=== PATIENT | female | born 1980 | race Caucasian/White ===

== ENCOUNTER → 2017-08-17 | Outpatient (CLI) | payer OTHER ==
[2016-02-25 17:25] VITALS: BP 112/56
--- NOTE | 2017-08-17 13:16 | RAD ---
Right wrist, 4 views, 08/17/2017: History: Wrist pain No fracture or dislocation is identified. No significant arthritic change is seen. The soft tissues are unremarkable. IMPRESSION: No significant right wrist abnormality is detected.
== END | disposition home or self-care (01) ==
LOC: RAD 12:44
PROVIDERS: ATTEND Orthopaedic Surgery Sports Medicine
DX: M25.531 Pain in right wrist (principal)
CPT/HCPCS: 73110

== ENCOUNTER → 2018-06-07 | Outpatient (CLI) | payer OTHER ==
[2016-02-25 17:25] VITALS: BP 112/56
--- NOTE | 2018-06-07 16:22 | RAD ---
EXAM: Neck sonogram. HISTORY: Lymphadenopathy. TECHNIQUE: Sonographic imaging of the neck was performed. COMPARISON: None. FINDINGS: There are right cervical chain lymph nodes at the site of palpable concern measuring 10 x 5 x 3 mm and 8 x 5 x 2 mm. These maintain benign fatty jerrod. No suspicious lymph node morphology is seen. No alternative mass or fluid collection is seen. IMPRESSION: Benign-appearing right cervical chain lymph nodes at the site of palpable concern, the largest of which measures 10 mm in long axis. Electronically signed by: Racheal Wu MD (06/07/2018 4:19 PM) [place] [id number]
== END | disposition home or self-care (01) ==
LOC: US 15:05
PROVIDERS: ATTEND Physician Assistant
DX: R59.0 Localized enlarged lymph nodes (principal); Z87.891 Personal history of nicotine dependence; Z88.2 Allergy status to sulfonamides; Z88.6 Allergy status to analgesic agent
CPT/HCPCS: 76536

== ENCOUNTER → 2019-04-02 | Outpatient (CLI) | payer OTHER ==
[2016-02-25 17:25] VITALS: BP 112/56
--- NOTE | 2019-04-02 10:40 | RAD ---
Three-view right shoulder study Clinical indications: Right shoulder pain. M 25.511. FINDINGS: No acute fracture or dislocation or lytic process is seen. No AC joint separation is seen. There is mild degenerative spurring of the right AC joint. There is mild lateral downsloping of the acromial process. These findings may impinge the acromial humeral space resulting in rotator cuff disease. IMPRESSION: No acute fracture. Electronically signed by: Chandana Russo MD (04/02/2019 10:37 AM) [facility]
== END | disposition home or self-care (01) ==
LOC: RAD 09:50
PROVIDERS: ATTEND Orthopaedic Surgery Sports Medicine
DX: M25.511 Pain in right shoulder (principal)
CPT/HCPCS: 73030

== ENCOUNTER 2019-11-07 17:24 | Emergency (ER) | payer OTHER ==
[~2019-11-07] VITALS: Ht 167.6 cm; Wt 77.2 kg
--- NOTE | 2019-11-07 17:29 | PHYS DOC ---
Past History Past Medical History: Other Past Surgical History: Other Smoking: Cigarettes Alcohol Use: Occasionally Drug Use: None Adult General Chief Complaint Chief Complaint: ".. I ve been hurting really bad for last two days.. my neck.. my upper back.. and it runs into my Lt shoulder and arm...."..." I been using icy hot and heat packs but has not seemed to help" HPI HPI Patient is a 39 year old female who presents with neck, chest, Lt shoulder and arm pain. Pt. follow with Tra for care.. Patient did help with some heavy lifting a couple is ago. Patient localizes her pain primarily in trapezius on left. There is no midline tenderness. No fevers. No problems with defecation or urination. Patient is right-hand dominant. Pain appears to follow neuropathic- burning sensation. She does have sensations in her deltoid. Punch Operator are equal. Distal sensation is equal to right hand. Patient has had some rheumatological issues and is a family history Lupus. She normally follows with Tra. Review of Systems Review of Systems Constitutional: Denies fever or chills [] Eyes: Denies change in visual acuity, redness, or eye pain [] HENT: Denies nasal congestion or sore throat . Patient []complaints of left trapezius pain Respiratory: Denies cough or shortness of breath [] Cardiovascular: No additional information not addressed in HPI [] GI: Denies abdominal pain, nausea, vomiting, bloody stools or diarrhea [] : Denies dysuria or hematuria [] Musculoskeletal: Denies back pain or joint pain []. Complains of left shoulder/trapezius pain Integument: Denies rash or skin lesions [] Neurologic: Denies headache, focal weakness or sensory changes [] Endocrine: Denies polyuria or polydipsia [] All other systems were reviewed and found to be within normal limits, except as documented in this note. Family History Family History Lupus, hypertension, cardiac disease starting 40s Current Medications Current Medications See nursing for home meds Allergies Allergies Allergies Coded Allergies Type Severity Reaction Last Updated Verified Sulfa (Sulfonamide Antibiotics) Allergy Unknown 02/25/16 Yes tramadol Allergy Unknown 02/25/16 Yes Physical Exam Physical Exam Constitutional: , moderately acute acute distress, non-toxic appearance. [] HENT: Normocephalic, atraumatic, bilateral external ears normal, oropharynx moist, no oral exudates, nose normal. []Trapezius area is tender Eyes: PERRLA, EOMI, conjunctiva normal, no discharge. [] Neck: Normal range of motion, no tenderness, supple, no stridor. [] Cardiovascular:Heart rate regular rhythm, no murmur [] Lungs & Thorax: Bilateral breath sounds equal apex with scattered wheezing auscultation [] Abdomen: Bowel sounds normal, soft, no tenderness, no masses, no pulsatile masses. [] Skin: Warm, dry, no erythema, no rash. [] Back: No tenderness, no CVA tenderness. [] Extremities: Left shoulder tenderness, no cyanosis, no clubbing, ROM intact, no edema. [] Neurologic: Alert and oriented X 3, normal motor function, normal sensory function, no focal deficits noted. []. DTRs +2 patella and brachial. Neuropathic pain from her neck into left shoulder and arm. DTRs +2 patella and brachial. No drift. Punch Operator equal. Psychologic: Affect anxious, judgement normal, mood normal. [] EKG EKG My interpretation EKG shows a sinus rhythm at 63 bpm. No acute morphology.[] Radiology/Procedures Radiology/Procedures [][place] [id number] IMAGING REPORT Signed PATIENT: MANJIT MORE ACCOUNT: [id number] : 1980 LOCATION: ER AGE: 39 SEX: F EXAM STATUS: REG ER ORD. PHYSICIAN: GALA VILLATORO MD REASON: Severe neck pain, neuropathy Lt. neck and arm PROCEDURE: CT CERVICAL SPINE WO CONTRAST Exam: CT CERVICAL SPINE WO CONTRAST Date: 11/07/2019 5:46 PM Indication: Severe neck pain with left-sided radiculopathy Comparison: None. Technique: CT imaging of the cervical spine was performed without contrast. Coronal and sagittal reformatted images were performed. One or more of the following dose reduction techniques were utilized: Automated exposure control (AEC), Adjustment of mA and/or kV according to patient size, Use of iterative reconstruction technique such as ASiR, CT scan done according to ALARA and image gently/image wisely. Findings: The cervical spine is normally aligned. No acute fracture. No aggressive lytic or blastic osseous lesion. Mild multilevel degenerative disc height loss. No high-grade spinal canal stenosis or neural foraminal narrowing. Atrophic or surgically absent left thyroid. No cervical lymphadenopathy. The visualized aerodigestive tract is unremarkable. The visualized portions of the lungs are clear. Impression: No acute osseous abnormality of the cervical spine. Mild cervical spondylosis. Electronically signed by: Octavio Braden MD (11/07/2019 6:35 PM) [id number] DICTATED AND SIGNED BY: OCTAVIO BRADEN MD DATE: 11/07/191834 CC: GALA VILLATORO MD; LAURYN ESPINOSA ~ My interpretation of chest and left shoulder films show no acute fracture or dislocation. Some mild degenerative changes Course & Med Decision Making Course & Med Decision Making Pertinent Labs and Imaging studies reviewed. (See chart for details) Patient to use ice packs only for the next 3 days. Gentle massage. Follow-up primary care. If no reentry follow with moist heat packs and massage. Patient take Flexeril 10 mg at 3 times a day for marked thoracic muscle spasms. Take Tylenol and ibuprofen for pain. For marked pain may take Vicoprofen up 4 times a day. Consider physical therapy. Review ED workup with primary care. Return if any concerns. Currently patient not smoke or use alcohol to excess. Continue problems may need MRI to fully evaluate the spinal cord Impression: 1. Trapezius spasm left 2. Cervical neuropathy Lt. 3. Mild to moderate cervical degenerative joint changes no obvious severe impingement or stenosis by CT [] Dragon Disclaimer Dragon Disclaimer This electronic medical record was generated, in whole or in part, using a voice recognition dictation system. Departure Departure: Disposition: 01 HOME/RESIDENCE PRIOR TO ADM Condition: STABLE Referrals: LAURYN ESPINOSA (PCP) Scripts Cyclobenzaprine Hcl (CYCLOBENZAPRINE HCL) 10 Mg Tablet 10 MG PO tidprn for muscle spasms, #30 TAB Prov: GALA VILLATORO MD 11/07/19 Hydrocodone/Ibuprofen (HYDROCODONE-IBUPROFEN 7.5-200 ) 1 Each Tablet 1 TAB PO PRN Q6HRS PRN for PAIN, #30 TAB 0 Refills Prov: GALA VILLATORO MD 11/07/19 Dragon Disclaimer This chart was dictated in whole or in part using Voice Recognition software in a busy, high-work load, and often noisy Emergency Department environment. It may contain unintended and wholly unrecognized errors or omissions. Dragon Disclaimer This chart was dictated in whole or in part using Voice Recognition software in a busy, high-work load, and often noisy Emergency Department environment. It may contain unintended and wholly unrecognized errors or omissions. GALA VILLATORO MD Nov 07, 2019 17:29
[2019-11-07] MEDS ORDERED: IV RINGERS SOLUTION,LACTATED 1,000 ML IV SCH (17:46)
[2019-11-07] MEDS ORDERED: ORPHENADRINE CITRATE 60 MG/2 ML VIAL. IM ONE (18:00)
[2019-11-07] MEDS ORDERED: KETOROLAC 30 MG/ML VIAL. IVP ONE (18:00)
[2019-11-07 18:15] VITALS: BP 131/89
[2019-11-07 18:17] LABS: BARBITURATES NEG (NEG); BENZODIAZEPINES NEG (NEG); CANNABINOIDS NEG (NEG); COCAINE NEG (NEG); METHADONE NEG (NEG); OPIATES NEG (NEG); PHENCYCLIDINE NEG (NEG)
[2019-11-07 18:18] LABS: AMPHETAMINE/METHAMPHETAMINE NEG (NEG)
[2019-11-07 18:38] LABS: CALCIUM 8.7 mg/dL (8.5-10.1); CREATININE 0.9 mg/dL (0.6-1.0); GFR 69.7; POTASSIUM 3.9 mmol/L (3.5-5.1)
--- NOTE | 2019-11-07 18:38 | RAD ---
Exam: CT CERVICAL SPINE WO CONTRAST Date: 11/07/2019 5:46 PM Indication: Severe neck pain with left-sided radiculopathy Comparison: None. Technique: CT imaging of the cervical spine was performed without contrast. Coronal and sagittal reformatted images were performed. One or more of the following dose reduction techniques were utilized: Automated exposure control (AEC), Adjustment of mA and/or kV according to patient size, Use of iterative reconstruction technique such as ASiR, CT scan done according to ALARA and image gently/image wisely. Findings: The cervical spine is normally aligned. No acute fracture. No aggressive lytic or blastic osseous lesion. Mild multilevel degenerative disc height loss. No high-grade spinal canal stenosis or neural foraminal narrowing. Atrophic or surgically absent left thyroid. No cervical lymphadenopathy. The visualized aerodigestive tract is unremarkable. The visualized portions of the lungs are clear. Impression: No acute osseous abnormality of the cervical spine. Mild cervical spondylosis. Electronically signed by: Jose Alfredo Goldstein MD (11/07/2019 6:35 PM) [id number]
[2019-11-07 18:42] LABS: BASO # 0.1 x10^3/uL (0.0-0.2); BASO % 1 % (0-3); EOS # 0.1 x10^3/uL (0.0-0.7); EOS % 2 % (0-3); HEMATOCRIT 41.7 % (36.0-47.0); HEMOGLOBIN 13.8 g/dL (12.0-15.5); LYMPH # 2.5 x10^3/uL (1.0-4.8); LYMPH % 27 % (24-48); MEAN CORPUSCULAR HEMOGLOBIN 30 pg (25-35); MEAN CORPUSCULAR HGB CONC 33 g/dL (31-37); MEAN CORPUSCULAR VOLUME 91 fL (79-100); MONO # 0.4 x10^3/uL (0.0-1.1); MONO % 5 % (0-9); NEUT # 6.1 x10^3uL (1.8-7.7); NEUT % 66 % (31-73); PLATELET COUNT 198 x10^3/uL (140-400); RED BLOOD COUNT 4.56 x10^6/uL (3.50-5.40); RED CELL DISTRIBUTION WIDTH 13.8 % (11.5-14.5); WHITE BLOOD COUNT 9.2 x10^3/uL (4.0-11.0)
[2019-11-07 18:44] LABS: BACTERIA,URINE FEW /HPF (0-FEW); BILIRUBIN,URINE NEG (NEG); CLARITY,URINE CLEAR; COLOR,URINE YELLOW; GLUCOSE,URINE NEG (NEG); NITRITE,URINE NEG (NEG); RBC,URINE RARE /HPF (0-2); SQUAMOUS EPITHELIAL CELL,UR MOD /LPF; UROBILINOGEN,URINE 0.2 mg/dL (0.2 mg/dL); WBC,URINE OCC /HPF (0-4)
[2019-11-07 18:47] LABS: ALBUMIN 4.2 g/dL (3.4-5.0); C REACTIVE PROTEIN 0.6 mg/L (0-3.3); DIRECT BILIRUBIN 0.1 mg/dL (0.0-0.2); MAGNESIUM 2.1 mg/dL (1.8-2.4); TOTAL BILIRUBIN 0.2 mg/dL (0.2-1.0); TOTAL PROTEIN 7.2 g/dL (6.4-8.2)
--- NOTE | 2019-11-07 18:59 | EKG ---
[address] [address] Test Date: 2019-11-07 Test Time: 18:30:26 Pat Name: AMNJIT MORE Department: Room: Gender: F Psychometric Examiner: : 1980 Requested By: GALA VILLATORO Order Number: [id number] Reading MD: Measurements Intervals [place] Rate: 63 P: -28 CO: 148 QRS: 49 QRSD: 72 T: 42 QT: 390 QTc: 402 Interpretive Statements SINUS RHYTHM NO SPECIFIC ECG ABNORMALITIES RI6.01 No previous ECG available for comparison
[2019-11-07] MEDS ORDERED: CYCL-331 PO (19:02)
[2019-11-07] MEDS ORDERED: HYDR-1179 PO (19:02)
[2019-11-07] MEDS ORDERED: methylPREDNISolone ACETATE 40 MG/ML VIAL. IM ONE (19:15)
--- NOTE | 2019-11-07 20:04 | RAD ---
CHEST PA LATERAL INDICATION: Chest pain. COMPARISON STUDY: 09/23/2011. FINDINGS: Lungs: Normal lung volume. No pulmonary mass or consolidation. The tracheobronchial tree and hilar structures are normal. Pleura: No pleural effusion or pneumothorax. Heart and Mediastinum: The cardiomediastinal silhouette is normal. The great vessels of the thorax are normal. Bones and Soft Tissues: The bones and soft tissues are within normal limits. IMPRESSION: No acute cardiopulmonary process. Electronically signed by: Jose Alfredo Goldstein MD (11/07/2019 8:02 PM) [id number]
--- NOTE | 2019-11-07 20:05 | RAD ---
SHOULDER 2+V LEFT DATE: 11/07/2019 6:12 PM INDICATION: Shoulder pain COMPARISON: None. FINDINGS: Bones: There is no evidence of acute fracture or dislocation. Joints: The joint spaces are normal. The acromiohumeral distance is not narrowed. Miscellaneous: No abnormal soft tissue calcifications in the shoulder. IMPRESSION: No evidence of acute fracture. Electronically signed by: Jose Alfredo Goldstein MD (11/07/2019 8:02 PM) [id number]
[2019-11-07 20:08] LABS: SEDIMENTATION RATE 5 (0-25)
[2019-11-08 19:07] LABS: ANA INTERP Negative (.)
== END 2019-11-07 19:29 | disposition home or self-care (01) ==
LOC: ER 17:24
DX: M62.838 Other muscle spasm (principal); G54.2 Cervical root disorders, not elsewhere classified; M47.892 Other spondylosis, cervical region; F17.210 Nicotine dependence, cigarettes, uncomplicated; Z88.2 Allergy status to sulfonamides; Z88.8 Allergy status to other drugs, medicaments and biological substances
CPT/HCPCS: 36415; 71046; 72125; 73030; 80048; 80076; 80307; 81001; 81025; 82550; 83735; 84443; 84484; 85025; 85610; 85651; 85730; 86038; 86140; 93005; 96372; 96374; 99285; G0480; J1030; J1885; J2360; J7120

== ENCOUNTER 2020-08-04 08:44 | Emergency (ER) | payer OTHER ==
[~2020-08-04] VITALS: Ht 167.6 cm; Wt 77.2 kg
[~2020-08-04 08:44] MED LIST: CYCL-331 PO; HYDR-1179 PO
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
[2020-08-04] MEDS ORDERED: AMOX1TAB61 PO (11:51)
[2020-08-04] MEDS ORDERED: OXYM15MI4 NS (11:51)
[2020-08-04] MEDS ORDERED: DIPH,PERTUSS(ACELL),TET VAC/PF 0.5 ML SYRINGE. VAX IM ONE ×2 (11:52→12:00)
[2020-08-04] MEDS ORDERED: HYDR-3165 PO (11:52)
== END 2020-08-04 11:59 | disposition home or self-care (01) ==
LOC: ER 08:44
DX: S02.31XA Fracture of orbital floor, right side, initial encounter for closed fracture (principal); S01.81XA Laceration without foreign body of other part of head, initial encounter; G43.909 Migraine, unspecified, not intractable, without status migrainosus; F17.210 Nicotine dependence, cigarettes, uncomplicated; F10.20 Alcohol dependence, uncomplicated; Z88.2 Allergy status to sulfonamides; Z88.6 Allergy status to analgesic agent; Y90.9 Presence of alcohol in blood, level not specified; Y08.89XA Assault by other specified means, initial encounter; Y93.89 Activity, other specified; Y92.89 Other specified places as the place of occurrence of the external cause; Y99.0 Civilian activity done for income or pay
CPT/HCPCS: 12002; 12013; 70450; 70486; 90471; 90715; 99285-25

== ENCOUNTER → 2021-01-25 | Outpatient (CLI) | payer OTHER ==
[2020-08-04 08:58] VITALS: BP 154/56
[~2021-01-25] MED LIST changes: +AMOX1TAB61 PO; +HYDR-3165 PO; +OXYM15MI4 NS
--- NOTE | 2021-01-25 17:55 | RAD ---
DATE: 01/25/2021 EXAM: DIGITAL SCREEN BILAT W/CAD HISTORY: Screening. COMPARISON: None. Baseline exam. This study was interpreted with the benefit of Computerized Aided Detection (CAD). Breast Density: HETERO The breast parenchyma is heterogenously dense, which could reduce sensitivity of mammography. Breast parenchyma level C. FINDINGS: No mass, suspicious calcification, or architectural distortion in either breast. IMPRESSION: No evidence of malignancy. BI-RADS CATEGORY: 1 NEGATIVE RECOMMENDED FOLLOW-UP: 12M 12 MONTH FOLLOW-UP PQRS compliance statement: Patient information was entered into a reminder system with a target due date for the next mammogram. Mammography is a sensitive method for finding small breast cancers, but it does not detect them all and is not a substitute for careful clinical examination. A negative mammogram does not negate a clinically suspicious finding and should not result in delay in biopsying a clinically suspicious abnormality. "Our facility is accredited by the [employer] Mammography Program."
== END ==
LOC: MAMMO 08:54
PROVIDERS: ATTEND Physician Assistant
DX: Z12.31 Encounter for screening mammogram for malignant neoplasm of breast (principal)
CPT/HCPCS: 77067

== ENCOUNTER → 2021-05-26 | Outpatient (CLI) | payer OTHER ==
[2020-08-04 08:58] VITALS: BP 154/56
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
== END ==
LOC: PMG 11:09
PROVIDERS: ATTEND Physician Assistant
DX: J40 Bronchitis, not specified as acute or chronic (principal)
CPT/HCPCS: 71046